=== PATIENT | female | born 1950 | race Caucasian/White ===

== ENCOUNTER 2016-11-08 14:08 | Outpatient (CLI) | payer MEDICARE, OTHER ==
[2016-11-08 14:31] LABS: Hematocrit 31.1 % (36.0-47.0)
[2016-11-08 14:32] LABS: #Basophils 0.1 thou/uL (0.0-0.2); #Lymphocytes 1.1 thou/uL (1.20-3.40); #Monocytes 1.2 thou/uL (0.11-0.59); #Neutrophils 7.6 thou/uL (1.40-6.50); %Basophils 1.1 % (0.0-1.0); %Eosinophils 0.1 % (0.0-10.0); %Monocytes 11.7 % (0.0-10.0); Mean Platelet Volume 6.9 fL (7.4-10.4)
[2016-11-08 14:39] LABS: Bilirubin Negative (Negative); Blood, Urine Small (Negative); Glucose, Urine (Dipstick) Negative (Negative); Ketone, Urine Negative (Negative); Nitrite Negative (Negative); Protein, Urine (Dipstick) Negative (Neg-Trace); Urobilinogen 0.2 mg/dL (0.2-1.0)
[2016-11-08 14:46] LABS: Bacteria/HPF None Seen HPF (None Seen); Hyaline Casts/LPF NONE SEEN LPF (0-3 Hyaline); Oval Fat Bodies/HPF None Seen HPF (None Seen); RBC/HPF 0-3 HPF (0-3); Renal Epithelial None Seen HPF (0-3); Sperm/HPF None Seen HPF (None Seen); Squamous Epithelial 0-3 HPF (0-3); Transitional Epithelial NONE SEEN HPF (0-3); Trichomonas/HPF None Seen HPF (None Seen); WBC/HPF 0-3 HPF (0-3); Yeast-All Forms None Seen HPF (None Seen)
[2016-11-08 14:50] LABS: ALT (SGPT) 13 U/L (0-55); AST (SGOT) 19 U/L (5-34); Alkaline Phosphatase 81 U/L (40-150); Anion Gap 11 mmol/L (10-20); BUN (Urea Nitrogen) 10 mg/dL (9.8-20.1); Bilirubin, Total 0.4 mg/dL (0.2-1.2); CK (CPK) 128 U/L (29-168); Calc. Creatinine Clearance 0 mL/min (70-130); Calcium 9.2 mg/dL (7.8-10.44); Carbon Dioxide 24 mmol/L (23-31); Chloride 96 mmol/L (98-107); Estimated GFR-MDRD 69; Globulin 2.9 g/dL (2.4-3.5); Protein, Total 6.3 g/dL (5.8-8.1)
== END 2016-11-08 14:09 ==
LOC: HPCALD 14:08
PROVIDERS: ATTEND Family Medicine
DX: N94.89 Other specified conditions associated with female genital organs and menstrual cycle (principal); R26.89 Other abnormalities of gait and mobility
CPT/HCPCS: 36415; 80053; 80185; 81001; 82550; 85025

== ENCOUNTER 2016-12-04 10:14 | Outpatient (CLI) | payer MEDICARE, OTHER ==
[2016-12-04 12:41] LABS: #Basophils 0.1 thou/uL (0.0-0.2); #Eosinphils 0.1 thou/uL (0.0-0.7); #Lymphocytes 0.9 thou/uL (1.20-3.40); #Monocytes 0.5 thou/uL (0.11-0.59); #Neutrophils 3.1 thou/uL (1.40-6.50); %Basophils 1.1 % (0.0-1.0); %Eosinophils 2.1 % (0.0-10.0); %Lymphocytes 19.7 % (21.0-51.0); %Monocytes 10.1 % (0.0-10.0); %Neutrophils 67.1 % (42.0-75.0); Hemoglobin 10.7 g/dL (12.0-16.0); Mean Corpuscular HGB CONC 33.4 g/dL (32.0-36.0); Mean Corpuscular Hemoglobin 29.4 pg (27.0-31.0); Mean Corpuscular Volume 87.9 fl (81.0-99.0); Mean Platelet Volume 6.2 fL (7.4-10.4); Platelet Count 189 thou/uL (130-400); Red Blood Cell (RBC) Count 3.65 mill/uL (4.20-5.40); White Blood Cell (WBC) Count 4.6 thou/uL (4.8-10.8)
== END 2016-12-04 10:15 | disposition home or self-care (01) ==
LOC: HPCALD 10:14
PROVIDERS: ATTEND Family Medicine
DX: E03.9 Hypothyroidism, unspecified (principal); N94.89 Other specified conditions associated with female genital organs and menstrual cycle
CPT/HCPCS: 36415; 84443; 85025

== ENCOUNTER 2016-12-06 09:30 | Outpatient (CLI) | payer MEDICARE, OTHER ==
[2016-12-06 11:13] LABS: Anion Gap 11 mmol/L (10-20); BUN (Urea Nitrogen) 11 mg/dL (9.8-20.1); Calc. Creatinine Clearance 0 mL/min (70-130); Calcium 9.1 mg/dL (7.8-10.44); Carbon Dioxide 27 mmol/L (23-31); Chloride 102 mmol/L (98-107); Estimated GFR-MDRD 78; Glucose 85 mg/dL (80-115); Potassium 3.8 mmol/L (3.5-5.1); Sodium 136 mmol/L (136-145)
[2016-12-06 17:55] LABS: Iron 51 ug/dL (50-170); Iron Binding Capacity, Total 351 mcg/dL (265-497)
== END 2016-12-06 09:31 | disposition home or self-care (01) ==
LOC: HPCALD 09:30
PROVIDERS: ATTEND Family Medicine
DX: E87.1 Hypo-osmolality and hyponatremia (principal); D64.9 Anemia, unspecified
CPT/HCPCS: 36415; 80048; 83540; 83550

== ENCOUNTER 2017-01-24 12:51 | Outpatient (CLI) | payer MEDICARE ==
[2017-01-24 13:20] LABS: #Eosinphils 0.1 thou/uL (0.0-0.7); #Lymphocytes 0.9 thou/uL (1.20-3.40); #Monocytes 0.5 thou/uL (0.11-0.59); #Neutrophils 3.7 thou/uL (1.40-6.50); %Basophils 0.9 % (0.0-1.0); %Eosinophils 2.2 % (0.0-10.0); %Lymphocytes 17.7 % (21.0-51.0); %Monocytes 10.1 % (0.0-10.0); %Neutrophils 69.1 % (42.0-75.0); Hemoglobin 11.6 g/dL (12.0-16.0); Mean Corpuscular HGB CONC 32.9 g/dL (32.0-36.0); Mean Corpuscular Hemoglobin 29.2 pg (27.0-31.0); Mean Corpuscular Volume 88.8 fl (81.0-99.0); Mean Platelet Volume 7.2 fL (7.4-10.4); Platelet Count 210 thou/uL (130-400); RBC Distribution Width 12.2 % (11.5-14.5); Red Blood Cell (RBC) Count 3.96 mill/uL (4.20-5.40); White Blood Cell (WBC) Count 5.3 thou/uL (4.8-10.8)
== END 2017-01-24 12:52 | disposition home or self-care (01) ==
LOC: HPCALD 12:51
PROVIDERS: ATTEND Family Medicine
DX: D62 Acute posthemorrhagic anemia (principal)
CPT/HCPCS: 36415; 85025

== ENCOUNTER 2020-03-25 15:43 | Emergency (ER) | payer OTHER ==
--- NOTE | 2020-03-25 18:50 | CT ---
CT CERVICAL SPINE WITHOUT CONTRAST: 03/25/[address] of the cervical spine was done for evaluation of a cervical radiculopathy. Comparison is ma de with a 10/16/16 MRI. The major finding on this study is what looks like a small focal disc osteophyte protrusion on the le ft at C6-C7. It probably impinges upon the thecal sac, though I do not thin the neural foramen is blo cked. This is a new finding compared to the MRI. No fracture or area of bony destruction was seen. Th e C1 to dens distance is normal. The soft tissues are normal in thickness. Findings by level follow. C1-C2: No acute findings. C2-C3: Slight right foraminal stenosis and prominent left facet arthropathy. C3-C4: Prominent left facet arthropathy. Moderate to severe left foraminal narrowing. C4-C5: Mild bilateral foraminal narrowing. C5-C6: Moderate bilateral foraminal narrowing. C6-C7: Moderate to severe right foraminal narrowing and mild to moderate left foraminal narrowing. Se e comments above regarding left disc protrusion. C7-T1: No acute findings. T1-T2: No acute findings. T2-T3: No acute findings. The lung apices are clear. IMPRESSION: Moderately advanced degenerative changes throughout the spine. Probable small focal disc osteophyte c omplex in the left paracentral region at C6-C7. Findings discussed with Dr. Velez at [id number] on 03/25/20. Code CR POS: HOME
== END 2020-03-25 17:15 | disposition home or self-care (01) ==
LOC: BURERS 15:43
DX: M47.22 Other spondylosis with radiculopathy, cervical region (principal)
CPT/HCPCS: 72125; 93005

== ENCOUNTER 2020-03-30 13:46 | Outpatient (CLI) | payer OTHER ==
--- NOTE | 2020-03-30 20:40 | RAD ---
CERVICAL SPINE THREE VIEWS: 03/30/20 Review of the recent 03/25/2020 CT was done which suggested a probable small focal disc osteophyte com plex in the left paracentral region at C6-C7. These films were compared with the 10/16/16 plain radiog raphs. The appearance of the cervical spine today is similar to the 2017 study. One might argue for a little more disc space narrowing at C6-C7 today than before, but the differences are very marginal. No new findings are present otherwise. Prominent osteophytes are seen anteriorly in the low cervical region as before. No fracture or soft tissue swelling was seen. IMPRESSION: Diffuse degenerative changes. Some mild disc space narrowing at C5-C6, C6-C7, and perhaps C7-T1. POS: HOME
== END 2020-03-30 13:47 | disposition home or self-care (01) ==
LOC: BURRAD 13:46
PROVIDERS: ATTEND Family Medicine
DX: M47.22 Other spondylosis with radiculopathy, cervical region (principal); M48.02 Spinal stenosis, cervical region; M48.03 Spinal stenosis, cervicothoracic region
CPT/HCPCS: 72040

== ENCOUNTER 2020-11-27 12:06 | Emergency (ER) | payer MEDICARE | END 2020-11-27 12:38 | disposition home or self-care (01) | LOC: BURERS 12:06 | DX: K12.0 Recurrent oral aphthae (principal); I10 Essential (primary) hypertension; E03.9 Hypothyroidism, unspecified | CPT/HCPCS: 99282 ==

== ENCOUNTER 2021-04-06 19:29 | Emergency (ER) | payer MEDICARE ==
[~2021-04-06 19:29] MED LIST: Iopamidol 370 76% 100 ML VIAL ONE
[2021-04-06 20:25] LABS: #Basophils 0.1 thou/uL (0.0-0.2); #Monocytes 0.6 thou/uL (0.11-0.59); %Basophils 0.6 % (0.0-1.0); %Eosinophils 0.3 % (0.0-10.0); %Lymphocytes 8.5 % (21.0-51.0); %Monocytes 5.4 % (0.0-10.0); %Neutrophils 85.2 % (42.0-75.0); Hemoglobin 14.1 g/dL (12.0-16.0); Mean Corpuscular HGB CONC 34.8 g/dL (32.0-36.0); Mean Corpuscular Hemoglobin 32.3 pg (27.0-31.0); Mean Corpuscular Volume 92.8 fL (78.0-98.0); Mean Platelet Volume 7.5 fL (7.4-10.4); Platelet Count 187 thou/uL (130-400); RBC Distribution Width 11.1 % (11.5-14.5); Red Blood Cell (RBC) Count 4.36 mill/uL (4.20-5.40); White Blood Cell (WBC) Count 11.7 thou/uL (4.8-10.8)
[2021-04-06 20:42] LABS: ALT (SGPT) 13 U/L (8-55); AST (SGOT) 17 U/L (5-34); Albumin 3.8 g/dL (3.4-4.8); Alkaline Phosphatase 123 U/L (40-110); Anion Gap 14 mmol/L (10-20); BUN (Urea Nitrogen) 13 mg/dL (9.8-20.1); Bilirubin, Total 0.3 mg/dL (0.2-1.2); Calc. Creatinine Clearance 0 mL/min (70-130); Calcium 8.5 mg/dL (7.8-10.44); Carbon Dioxide 24 mmol/L (23-31); Chloride 100 mmol/L (98-107); Globulin 2.4 g/dL (2.4-3.5); Glucose 146 mg/dL (83-110); Potassium 3.5 mmol/L (3.5-5.1); Protein, Total 6.2 g/dL (5.8-8.1); Sodium 134 mmol/L (136-145)
[2021-04-06 21:18] LABS: Bilirubin Negative (Negative); Blood, Urine Trace (Negative); Clarity Clear (Clear); Glucose, Urine (Dipstick) Negative (Negative); Ketone, Urine Negative (Negative); Leukocyte Negative (Negative); Nitrite Negative (Negative); Protein, Urine (Dipstick) > or equal to 300 mg/dL (Neg-Trace); Specific Gravity, Urine 1.025 (1.005-1.030); Urobilinogen 0.2 mg/dL (Less than 2)
[2021-04-06 21:25] LABS: Bacteria/HPF 1+ HPF (None Seen); RBC/HPF 0-3 HPF (0-3); Squamous Epithelial 0-3 HPF (0-3); WBC/HPF 0-3 HPF (0-3)
[2021-04-06] MEDS ORDERED: Ondansetron ODT 4 MG TAB ONE (23:10)
== END 2021-04-06 23:12 | disposition home or self-care (01) ==
LOC: BURERS 19:29
DX: A08.4 Viral intestinal infection, unspecified (principal); I10 Essential (primary) hypertension; E03.9 Hypothyroidism, unspecified; M19.90 Unspecified osteoarthritis, unspecified site; J45.909 Unspecified asthma, uncomplicated; Z79.82 Long term (current) use of aspirin; Z79.899 Other long term (current) drug therapy
CPT/HCPCS: 36415; 51701; 74177; 80053; 81003; 81015; 85025; Q0162; Q9967

== ENCOUNTER 2021-12-20 10:11 | Outpatient (CLI) | payer MEDICARE ==
[2021-12-20] MEDS ORDERED: Iopamidol 370 76% 100 ML VIAL FS ONE (10:12)
== END 2021-12-20 10:12 | disposition home or self-care (01) ==
LOC: BURCT 10:11
PROVIDERS: ATTEND Family Medicine
DX: Z01.818 Encounter for other preprocedural examination (principal); R19.09 Other intra-abdominal and pelvic swelling, mass and lump
CPT/HCPCS: 36415; 74177; 82565; Q9967

== ENCOUNTER 2022-07-10 16:06 | Outpatient (CLI) | payer MEDICARE | END 2022-07-10 16:07 | disposition home or self-care (01) | LOC: BURRAD 16:06 | PROVIDERS: ATTEND Family Medicine | DX: L30.9 Dermatitis, unspecified (principal); M19.011 Primary osteoarthritis, right shoulder; M25.811 Other specified joint disorders, right shoulder ==

== ENCOUNTER 2023-04-17 22:37 | Emergency (ER) | payer MEDICARE | END 2023-04-18 00:55 | disposition home or self-care (01) | LOC: BURERS 22:37 | DX: S10.93XA Contusion of unspecified part of neck, initial encounter (principal); R68.84 Jaw pain; I10 Essential (primary) hypertension; E03.9 Hypothyroidism, unspecified; M19.90 Unspecified osteoarthritis, unspecified site; G47.30 Sleep apnea, unspecified; W18.09XA Striking against other object with subsequent fall, initial encounter; Z79.82 Long term (current) use of aspirin; Z79.899 Other long term (current) drug therapy | CPT/HCPCS: 70450; 70486; 72125 ==

== ENCOUNTER 2023-10-28 10:58 | Emergency (ER) | payer MEDICARE ==
[2023-10-28] MEDS ORDERED: Acetaminophen/Codeine 30-300mg Tablet ONE (12:42)
== END 2023-10-28 12:52 | disposition home or self-care (01) ==
LOC: BURERS 10:58
DX: S32.019A Unspecified fracture of first lumbar vertebra, initial encounter for closed fracture (principal); S32.029A Unspecified fracture of second lumbar vertebra, initial encounter for closed fracture; S30.0XXA Contusion of lower back and pelvis, initial encounter; M51.36 Other intervertebral disc degeneration, lumbar region; I10 Essential (primary) hypertension; E03.9 Hypothyroidism, unspecified; J45.909 Unspecified asthma, uncomplicated; W01.0XXA Fall on same level from slipping, tripping and stumbling without subsequent striking against object, initial encounter; Y93.01 Activity, walking, marching and hiking; Z79.899 Other long term (current) drug therapy
CPT/HCPCS: 72131